=== PATIENT | female | born 1975 | race Caucasian/White ===

== ENCOUNTER 2016-11-24 13:25 | Emergency (ER) | payer OTHER ==
[~2016-11-24] VITALS: Ht 175.2 cm; Wt 90.7 kg
[~2016-11-24 13:25] MED LIST: ALDACTONE25 MG; CIPRO250 MG PO; DAYPRO600 M1 PO; FLEXERIL10 MG PO; FLEXERIL5 MG PO; GLUCOPHAGE500 MG PO; HYDROCODONE BIT1 T11 PO; KEFLEX500 MG PO; MEDROL DOSEPAK4 MG PO; METFORMIN500 MG; MOTRIN800 MG PO; Motrin,Rufen800 MG PO; NKHM; NOVOLOG1 UNIT/0.0 SC; PERCOCET 325 MG1 TA2 PO; PNV-SELECT1 TAB PO; PREDNICOT20 MG PO; ROBAXIN750 MG PO; SYNTHROID,LEVO25 MCG PO; TESSALON PERLE200 MG PO; TORADOL10 MG PO; TRAMADOL HCL50 MG PO; TRIMOX500 MG PO; VICODIN 5/500 505 MG PO; VICODIN 500 MG-1 TAB PO; ZITHROMAX Z PA250 MG PO; ZOFRAN ODT4 MG SL
[2016-11-24] MEDS ORDERED: TRAMADOL HCL50 MG PO (13:48)
[2016-11-24] MEDS ORDERED: SIMVASTATIN10 MG PO (13:49)
[2016-11-24] MEDS ORDERED: METFORMIN HCL1000 MG PO (13:49)
[2016-11-24] MEDS ORDERED: LISINOPRIL2.5 MG PO (13:49)
[2016-11-24] MEDS ORDERED: Glimepiride1 MG PO (13:49)
[2016-11-24] MEDS ORDERED: LIDEX 0.05% CRE15 GM T (14:17)
[2016-11-24] MEDS ORDERED: BACTRIM DS 8001 TA1 PO (14:17)
[2016-11-25] MEDS ORDERED: ZOFRAN ODT4 MG SL (09:50)
== END 2016-11-24 14:20 | disposition home or self-care (01) ==
LOC: ED 13:25
DX: R21 Rash and other nonspecific skin eruption (principal); F17.200 Nicotine dependence, unspecified, uncomplicated; Z98.890 Other specified postprocedural states; Z79.899 Other long term (current) drug therapy

== ENCOUNTER 2016-11-25 07:22 | Emergency (ER) | payer OTHER ==
[~2016-11-25] VITALS: Wt 90.7 kg
[~2016-11-25 07:22] MED LIST changes: +BACTRIM DS 8001 TA1 PO; +Glimepiride1 MG PO; +LIDEX 0.05% CRE15 GM T; +LISINOPRIL2.5 MG PO; +METFORMIN HCL1000 MG PO; +SIMVASTATIN10 MG PO
[2016-11-25 07:55] LABS: BILIRUBIN NEGATIVE (NEGATIVE); BLOOD TRACE-INTACT (NEGATIVE); CLARITY CLEAR (CLEAR); COLOR YELLOW (YELLOW); GLUCOSE 3+ (NEGATIVE); KETONE TRACE (NEGATIVE); LEUKO ESTERASE NEGATIVE (NEGATIVE); NITRITE NEGATIVE (NEGATIVE); PROTEIN NEGATIVE (NEGATIVE); SPECIFIC GRAVITY 1.025 (1.005-1.030); UROBILINOGEN 0.2 E.U./dl (0.2-1.0)
[2016-11-25 08:08] LABS: HEMATOCRIT 44.9 % (37.0-47.0); HEMOGLOBIN 15.2 g/dl (12.0-16.0); MEAN CELL VOLUME 89.3 fl (81.0-99.0); MEAN CORPUSCULAR HGB 30.2 pg (27.0-31.0); MEAN CORPUSCULAR HGB CONC 33.9 g/dl (33.0-37.0); MEAN PLATELET VOLUME 11.3 fl (9.6-12.3); PLATELET COUNT AUTOMATED 211 10*3/uL (130-400); RED BLOOD COUNT 5.03 10*6/uL (4.10-5.10); RED CELL DISTRI WIDTH 12.6 % (0-14.5); WHITE BLOOD COUNT 12.2 10*3/uL (4.8-10.8)
[2016-11-25 08:14] LABS: URINE REFLEX COMMENT NO (NO); WBC 0-2 wbc/hpf (0-5)
[2016-11-25 08:25] LABS: ALBUMIN 3.7 gm/dl (3.1-4.5); ALKALINE PHOSPHATASE 67 U/L (45-117); BILIRUBIN, TOTAL 0.3 mg/dl (0.2-1.0); BUN 13 mg/dl (7-24); C-REACTIVE PROTEIN 1.31 MG/DL (0-0.3); CARBON DIOXIDE 21 mmol/L (21-32); CHLORIDE 109 mmol/L (98-107); EST GLOM FILT AFRICAN AMERICAN > 60 ml/min; GLUCOSE 248 mg/dL (65-99); MAGNESIUM 1.7 mg/dL (1.5-2.1); SGOT/AST 42 IU/L (3-35); SGPT/ALT 83 U/L (12-78); SODIUM 138 mmol/L (136-145); TOTAL PROTEIN 7.4 gm/dL (6.4-8.2)
[2016-11-25 08:26] LABS: EOSINOPHIL # 0.2 10*3/uL (0-0.4); EOSINOPHILS 2 % (1-4); LYMPHOCYTE # 0.2 10*3/uL (1.3-4.4); MONOCYTE # 0.2 10*3/uL (0.1-1.0); NEUTROPHIL # 11.5 10*3/uL (2.3-7.9); NEUTROPHILS 94 % (47-73); PLATELET SUFFICIENCY NORMAL (NORMAL); TOTAL CELLS COUNTED 100 #CELLS
[2016-11-25] MEDS ORDERED: ZOFRAN ODT4 MG SL (09:50)
== END 2016-11-25 10:45 | disposition home or self-care (01) ==
LOC: ED 07:22
PROVIDERS: Emergency Medicine
DX: K52.9 Noninfective gastroenteritis and colitis, unspecified (principal); L03.116 Cellulitis of left lower limb; E11.9 Type 2 diabetes mellitus without complications; F17.200 Nicotine dependence, unspecified, uncomplicated; Z79.899 Other long term (current) drug therapy

== ENCOUNTER → 2019-01-19 | Outpatient (CLI) | payer OTHER | END | disposition home or self-care (01) | LOC: RAD 12:23 | DX: M51.36 Other intervertebral disc degeneration, lumbar region (principal) ==

== ENCOUNTER → 2019-02-03 | Outpatient (CLI) | payer OTHER | END | disposition home or self-care (01) | LOC: MAMMO 01-07 14:20 | DX: Z12.31 Encounter for screening mammogram for malignant neoplasm of breast (principal); E11.9 Type 2 diabetes mellitus without complications ==

== ENCOUNTER → 2019-03-04 | Outpatient (CLI) | payer OTHER | END | disposition home or self-care (01) | LOC: MAMMO 09:30 → US 11:00 | DX: N63.0 Unspecified lump in unspecified breast (principal); R22.1 Localized swelling, mass and lump, neck ==

== ENCOUNTER 2019-05-17 12:38 | Emergency (ER) | payer OTHER ==
[~2019-05-17] VITALS: Ht 172.7 cm; Wt 79.4 kg
[2019-05-18] MEDS ORDERED: AUGMENTIN 875875 MG PO (20:23)
[2019-05-18] MEDS ORDERED: IBUPROFEN600 MG PO (20:23)
== END 2019-05-17 14:27 | disposition home or self-care (01) ==
LOC: ED 12:38
DX: S00.83XA Contusion of other part of head, initial encounter (principal); K08.89 Other specified disorders of teeth and supporting structures; Z79.899 Other long term (current) drug therapy; Z79.2 Long term (current) use of antibiotics; W50.0XXA Accidental hit or strike by another person, initial encounter; Y93.89 Activity, other specified; Y92.89 Other specified places as the place of occurrence of the external cause; Y99.8 Other external cause status

== ENCOUNTER 2019-05-18 17:52 | Emergency (ER) | payer OTHER ==
[~2019-05-18] VITALS: Ht 172.7 cm; Wt 79.4 kg
[2019-05-18] MEDS ORDERED: IBUPROFEN600 MG PO (20:23)
[2019-05-18] MEDS ORDERED: AUGMENTIN 875875 MG PO (20:23)
== END 2019-05-18 20:42 | disposition home or self-care (01) ==
LOC: ED 17:52
DX: S00.83XD Contusion of other part of head, subsequent encounter (principal); S09.93XD Unspecified injury of face, subsequent encounter; K04.7 Periapical abscess without sinus; E11.9 Type 2 diabetes mellitus without complications; Z79.899 Other long term (current) drug therapy; W50.0XXD Accidental hit or strike by another person, subsequent encounter

== ENCOUNTER → 2019-10-12 | Outpatient (CLI) | payer OTHER ==
[~2019-10-12] MED LIST changes: +AUGMENTIN 875875 MG PO; +IBUPROFEN600 MG PO
== END | disposition home or self-care (01) ==
LOC: US 12:29
DX: N93.9 Abnormal uterine and vaginal bleeding, unspecified (principal)

== ENCOUNTER 2019-12-24 04:48 | Emergency (ER) | payer OTHER ==
[~2019-12-24] VITALS: Ht 175.2 cm; Wt 90.7 kg
[2019-12-24] MEDS ORDERED: ORPHENADRINE E100 MG PO (06:38)
[2019-12-24] MEDS ORDERED: MEDROL DOSEPAK4 MG PO (06:38)
[2019-12-24] MEDS ORDERED: NORCO 5-325 TA1 EACH PO (06:39)
== END 2019-12-24 07:01 | disposition home or self-care (01) ==
LOC: ED 04:48
DX: M54.32 Sciatica, left side (principal); E11.9 Type 2 diabetes mellitus without complications; Z79.899 Other long term (current) drug therapy; Z79.84 Long term (current) use of oral hypoglycemic drugs

== ENCOUNTER 2019-12-28 03:05 | Emergency (ER) | payer OTHER ==
[~2019-12-28] VITALS: Ht 175.2 cm; Wt 90.7 kg
[~2019-12-28 03:05] MED LIST changes: +NORCO 5-325 TA1 EACH PO; +ORPHENADRINE E100 MG PO
== END 2019-12-28 05:02 | disposition left against medical advice (07) ==
LOC: ED 03:05
DX: M54.32 Sciatica, left side (principal); E11.9 Type 2 diabetes mellitus without complications; Z79.899 Other long term (current) drug therapy

== ENCOUNTER → 2020-01-05 | Outpatient (CLI) | payer OTHER | END | disposition home or self-care (01) | LOC: RAD 14:59 | DX: M54.30 Sciatica, unspecified side (principal); M54.5 Low back pain ==

== ENCOUNTER 2020-06-01 16:40 | Emergency (ER) | payer OTHER ==
[~2020-06-01] VITALS: Ht 175.2 cm; Wt 90.7 kg
[2020-06-01] MEDS ORDERED: MEDROL DOSEPAK4 MG PO (19:39)
[2020-06-01] MEDS ORDERED: ROBAXIN-750750 MG PO (19:39)
== END 2020-06-01 20:00 | disposition home or self-care (01) ==
LOC: ED 16:40
DX: M54.30 Sciatica, unspecified side (principal); E11.9 Type 2 diabetes mellitus without complications; Z79.899 Other long term (current) drug therapy; Z79.84 Long term (current) use of oral hypoglycemic drugs

== ENCOUNTER → 2020-08-02 | Outpatient (CLI) | payer OTHER ==
[~2020-08-02] MED LIST changes: +ROBAXIN-750750 MG PO
== END | disposition home or self-care (01) ==
LOC: MAMMO 07-24 08:30
PROVIDERS: ATTEND Physician Assistant
DX: Z12.31 Encounter for screening mammogram for malignant neoplasm of breast (principal)

== ENCOUNTER → 2020-12-05 | Outpatient (CLI) | payer OTHER | END | disposition home or self-care (01) | LOC: US 08:03 | PROVIDERS: ATTEND Physician Assistant | DX: K76.0 Fatty (change of) liver, not elsewhere classified (principal) ==

== ENCOUNTER → 2021-08-29 | Outpatient (CLI) | payer OTHER | END | disposition home or self-care (01) | LOC: MAMMO 08-22 14:00 | PROVIDERS: ATTEND Physician Assistant | DX: Z12.31 Encounter for screening mammogram for malignant neoplasm of breast (principal) ==

== ENCOUNTER → 2023-03-26 | Outpatient (CLI) | payer OTHER | END | disposition home or self-care (01) | LOC: MAMMO 03-06 10:30 | PROVIDERS: ATTEND Physician Assistant | DX: Z12.31 Encounter for screening mammogram for malignant neoplasm of breast (principal) ==